=== PATIENT | male | born 1985 | race Caucasian/White ===

== ENCOUNTER 2019-02-08 11:44 | Emergency (ER) | payer BC ==
[2019-02-08] MEDS ORDERED: HYDROCODONE/APAP 5/325 MG TAB ONE (12:57)
[2019-02-08] MEDS ORDERED: DIAZEPAM 5 MG TABLET ONE (12:58)
[2019-02-08 13:02] LABS: Urine Bacteria <20 /HPF (NONE SEEN); Urine RBC <5 /HPF (NONE SEEN)
[2019-02-08 13:03] LABS: Urine Culture Reflex Order NOT NEEDED
[2019-02-08 13:42] LABS: Urine Blood NEGATIVE (NEG); Urine Glucose NEGATIVE (NEG); Urine Protein NEGATIVE (NEG); Urine pH 6.5 (5.0-7.0)
--- NOTE | 2019-02-08 14:04 | RAD REPORT ---
EXAM DESCRIPTION: RAD - Chest Pa And Lat (2 Views) - 02/08/2019 1:51 pm CLINICAL HISTORY: Cough, left mid back pain COMPARISON: None. TECHNIQUE: PA and lateral views of the chest were obtained. FINDINGS: The lungs are clear. Heart size is normal and central vasculature is within normal limit s. No pleural effusion or pneumothorax seen. No acute bony finding noted. No aortic abnormality. IMPRESSION: No acute cardiopulmonary process.
--- NOTE | 2019-02-08 14:41 | ER ---
Nurse's Notes [facility] Name: Ranjan Lino Age: 33 yrs Sex: Male : 1985 Arrival Date: 02/08/2019 Time: 11:49 Bed 26 Private MD: Diagnosis: Muscle spasm of back Presentation: 02/08 12:00 Presenting complaint: Patient states: left mid back pain that began 1 week ago. Pt aa5 denies urinary symptoms, denies known injury. Transition of care: patient was not received from another setting of care. Onset of symptoms was January 2019. Risk Assessment: Do you want to hurt yourself or someone else? Patient reports no desire to harm self or others. Initial Sepsis Screen: Does the patient meet any 2 criteria? No. Patient's initial sepsis screen is negative. Does the patient have a suspected source of infection? No. Patient's initial sepsis screen is negative. Care prior to arrival: None. 12:00 Method Of Arrival: Ambulatory aa5 12:00 Acuity: HOANG 3 aa5 Historical: - Allergies: 12:01 "unknown antinausea medication"; aa5 - PMHx: 12:01 Asthma; aa5 - PSHx: 12:01 None; aa5 - Immunization history:: Flu vaccine is not up to date. - Social history:: Smoking status: Patient uses tobacco products, denies chronic smoking, but will smoke occasionally. - Ebola Screening: : No symptoms or risks identified at this time. Screenin:55 Abuse screen: Denies threats or abuse. Denies injuries from another. Nutritional ch screening: No deficits noted. Tuberculosis screening: No symptoms or risk factors identified. Fall Risk None identified. Assessment: 12:51 Reassessment: Patient appears in no apparent distress at this time. Patient and/or ch family updated on plan of care and expected duration. Pain level reassessed. Patient is alert, oriented x 3, equal unlabored respirations, skin warm/dry/pink. 12:55 Reassessment: Patient appears in no apparent distress at this time. Patient and/or ch family updated on plan of care and expected duration. Pain level reassessed. Patient is alert, oriented x 3, equal unlabored respirations, skin warm/dry/pink. Patient states feeling better. Patient states symptoms have improved. Pain: Complains of pain in left subscapular area and left scapular area and left trapezius and left lateral posterior chest Pain currently is 4 out of 10 on a pain scale. Pain began suddenly. Neuro: Level of Consciousness is awake, alert, obeys commands, Oriented to person, place, time, situation. Cardiovascular: No deficits noted. Respiratory: Airway is patent Respiratory effort is even, unlabored, Respiratory pattern is regular. GI: No signs and/or symptoms were reported involving the gastrointestinal system. Derm: Skin is pink, warm \\T\\ dry. Musculoskeletal: Circulation, motion, and sensation intact. Capillary refill < 3 seconds, in bilateral fingers. toes. Vital Signs: 12:01 BP 128 / 85; Pulse 70; Resp 16 S; Temp 98.6(TE); Pulse Ox 97% on R/A; Weight 106.59 kg aa5 (R); Height 5 ft. 10 in. (177.80 cm) (R); Pain 10/10; 14:08 BP 130 / 80; Pulse 63; Resp 14; Temp 97.8; Pulse Ox 99% on R/A; Pain 7/10; ch 12:01 Body Mass Index 33.72 (106.59 kg, 177.80 cm) aa5 ED Course: 11:49 Patient arrived in ED. mr 11:53 [facility]C [facility] snw 11:53 Jayme James MD is Attending Physician. snw 12:00 Arm band placed on. aa5 12:01 Triage completed. aa5 12:22 Amy Roland, HAMMAD is Primary Nurse. ls4 12:35 Urine collected: clean catch specimen, clear, amrita colored, Amount Voided: 120mL. jp3 12:44 Urine Microscopic Only Sent. jp3 12:55 No apparent distress. Resting quietly. ch 12:55 Patient has correct armband on for positive identification. Bed in low position. Call ch light in reach. Side rails up X 1. Adult w/ patient. Warm blanket given. 12:55 No provider procedures requiring assistance completed. Patient did not have IV access ch during this emergency room visit. 13:43 Patient moved to radiology via wheelchair. jb2 13:47 X-ray completed. Patient tolerated procedure well. Patient moved back from radiology. mh1 13:49 Chest Pa And Lat (2 Views) XRAY In Process Unspecified. EDMS Administered Medications: 12:50 Drug: [place] 5 mg-325 mg 1 tabs Route: PO; 14:09 Follow up: Response: No adverse reaction; Pain is decreased 12:51 Drug: Valium 5 mg Route: PO; 14:09 Follow up: Response: No adverse reaction; Pain is decreased Outcome: 14:40 Discharge ordered by MD. crowe 15:00 Patient left the ED. Signatures: Dispatcher [employer] EDMS Karin Henderson, RN RN Wendy Brunson, PROCEDURES ANALYST-C PROCEDURES ANALYST-Csnw LebronKelsey mr Alvarez, Alan fatima2 Geovanna Gomez 1 Aletha Kauffman RN RN aa5 Angel Botello jp3 Amy Roland RN RN ls4
--- NOTE | 2019-02-08 14:41 | EDPHYS ---
Physician Documentation [facility] Name: Ranjan Lino Age: 33 yrs Sex: Male : 1985 Arrival Date: 02/08/2019 Time: 11:49 Bed 26 Private MD: BILLY Physician Jayme James HPI: 02/08 12:37 This 33 yrs old Male presents to ER via Ambulatory with complaints of Back snw Pain. 12:37 The patient presents with pain that is acute, with no known mechanism of injury. The snw symptoms are located in the left trapezius, left scapular area and left subscapular area. Onset: The symptoms/episode began/occurred suddenly, 1 week(s) ago, and became persistent. The pain does not radiate. Associated signs and symptoms: Pertinent positives: cough. The problem was sustained from unknown cause. Modifying factors: The patient symptoms are alleviated by nothing, the patient symptoms are aggravated by coughing. Severity of symptoms: At their worst the symptoms were moderate. It is unknown whether or not the patient has had similar symptoms in the past. It is unknown whether or not the patient has recently seen a physician. Historical: - Allergies: 12:01 "unknown antinausea medication"; aa5 - PMHx: 12:01 Asthma; aa5 - PSHx: 12:01 None; aa5 - Immunization history:: Flu vaccine is not up to date. - Social history:: Smoking status: Patient uses tobacco products, denies chronic smoking, but will smoke occasionally. - Ebola Screening: : No symptoms or risks identified at this time. ROS: 12:37 Constitutional: Negative for fever, chills, and weight loss, Eyes: Negative for injury, snw pain, redness, and discharge, ENT: Negative for injury, pain, and discharge, Neck: Negative for injury, pain, and swelling, Abdomen/GI: Negative for abdominal pain, nausea, vomiting, diarrhea, and constipation, Back: Negative for injury and pain, : Negative for injury, bleeding, discharge, and swelling, MS/Extremity: Negative for injury and deformity, Skin: Negative for injury, rash, and discoloration, Neuro: Negative for headache, weakness, numbness, tingling, and seizure. 12:37 Cardiovascular: Positive for upper left back pain. 12:37 Respiratory: Positive for cough, pleurisy, of the left lateral posterior chest. Exam: 12:37 Constitutional: This is a well developed, well nourished patient who is awake, alert, snw and in no acute distress. Head/Face: Normocephalic, atraumatic. Eyes: Pupils equal round and reactive to light, extra-ocular motions intact. Lids and lashes normal. Conjunctiva and sclera are non-icteric and not injected. Cornea within normal limits. Periorbital areas with no swelling, redness, or edema. ENT: Nares patent. No nasal discharge, no septal abnormalities noted. Tympanic membranes are normal and external auditory canals are clear. Oropharynx with no redness, swelling, or masses, exudates, or evidence of obstruction, uvula midline. Mucous membranes moist. Neck: Trachea midline, no thyromegaly or masses palpated, and no cervical lymphadenopathy. Supple, full range of motion without nuchal rigidity, or vertebral point tenderness. No Meningismus. Cardiovascular: Regular rate and rhythm with a normal S1 and S2. No gallops, murmurs, or rubs. Normal PMI, no JVD. No pulse deficits. Abdomen/GI: Soft, non-tender, with normal bowel sounds. No distension or tympany. No guarding or rebound. No evidence of tenderness throughout. Back: No spinal tenderness. No costovertebral tenderness. Full range of motion. Skin: Warm, dry with normal turgor. Normal color with no rashes, no lesions, and no evidence of cellulitis. MS/ Extremity: Pulses equal, no cyanosis. Neurovascular intact. Full, normal range of motion. Neuro: Awake and alert, GCS 15, oriented to person, place, time, and situation. Cranial nerves II-XII grossly intact. Motor strength 5/5 in all extremities. Sensory grossly intact. Cerebellar exam normal. Normal gait. Psych: Awake, alert, with orientation to person, place and time. Behavior, mood, and affect are within normal limits. 12:37 Chest/axilla: Inspection: normal, Palpation: tenderness, that is moderate, of the left lateral posterior chest. 12:37 Respiratory: the patient does not display signs of respiratory distress, Respirations: normal, Breath sounds: are clear throughout, cough. Vital Signs: 12:01 BP 128 / 85; Pulse 70; Resp 16 S; Temp 98.6(TE); Pulse Ox 97% on R/A; Weight 106.59 kg aa5 (R); Height 5 ft. 10 in. (177.80 cm) (R); Pain 10/10; 14:08 BP 130 / 80; Pulse 63; Resp 14; Temp 97.8; Pulse Ox 99% on R/A; Pain 7/10; ch 12:01 Body Mass Index 33.72 (106.59 kg, 177.80 cm) aa5 MDM: 12:24 Patient medically screened. snw 14:51 Data reviewed: vital signs, nurses notes. Data interpreted: Pulse oximetry: on room air snw is 99 %. Interpretation: normal. Counseling: I had a detailed discussion with the patient and/or guardian regarding: the historical points, exam findings, and any diagnostic results supporting the discharge/admit diagnosis, lab results, radiology results, the need for outpatient follow up, to return to the emergency department if symptoms worsen or persist or if there are any questions or concerns that arise at home. Special discussion: I have referred the patient to see his PCP for further evaluation of high blood pressure. Based on the history and exam findings, there is no indication for further emergent testing or inpatient evaluation. I discussed with the patient/guardian the need to see the primary care provider for further evaluation of the symptoms. 02/08 12:04 Order name: Urine Microscopic Only; Complete Time: 13:19 snw 02/08 13:30 Order name: Urine Dipstick--Ancillary (enter results); Complete Time: 13:43 bd 02/08 12:04 Order name: Urine Dipstick-Ancillary (obtain specimen); Complete Time: 12:44 snw 02/08 12:36 Order name: Chest Pa And Lat (2 Views) XRAY; Complete Time: 14:05 snw Administered Medications: 12:50 Drug: [place] 5 mg-325 mg 1 tabs Route: PO; ch 14:09 Follow up: Response: No adverse reaction; Pain is decreased ch 12:51 Drug: Valium 5 mg Route: PO; ch 14:09 Follow up: Response: No adverse reaction; Pain is decreased ch Disposition: 15:06 Co-signature as Attending Physician, Jayme James MD I agree with the assessment and pravin plan of care. Disposition: 02/08/19 14:40 Discharged to Home. Impression: Muscle spasm of back. - Condition is Stable. - Discharge Instructions: Hypertension, Muscle Cramps and Spasms, Back Exercises, [id number], Cryotherapy, Heat Therapy. - Prescriptions for Diclofenac Sodium 75 mg Oral Tablet Sustained Release - take 1 tablet by ORAL route 2 times per day; 30 tablet. orphenadrine citrate 100 mg Oral Tablet Sustained Release - take 1 tablet by ORAL route 2 times per day As needed; 20 tablet. - Work release form, Medication Reconciliation Form, Thank You Letter, Antibiotic Education, Prescription Opioid Use form. - Follow up: Private Physician; When: 2 - 3 days; Reason: Recheck today's complaints, Continuance of care, Re-evaluation by your physician. Follow up: Emergency Department; When: As needed; Reason: Worsening of condition. Signatures: Dispatcher [employer] Karin Mancuso, RN RN Jayme Deleon MD MD cha Therrien, Shelly, CLEANING AND WASHING EQUIPMENT OPERATOR-C CLEANING AND WASHING EQUIPMENT OPERATOR-Csnw Aletha Kauffman, RN RN aa5 Corrections: (The following items were deleted from the chart) 15:00 14:40 02/08/2019 14:40 Discharged to Home. Impression: Muscle spasm of back. Condition ch is Stable. Forms are Medication Reconciliation Form, Thank You Letter, Antibiotic Education, Prescription Opioid Use. Follow up: Private Physician; When: 2 - 3 days; Reason: Recheck today's complaints, Continuance of care, Re-evaluation by your physician. Follow up: Emergency Department; When: As needed; Reason: Worsening of condition. snw
== END 2019-02-08 15:00 | disposition home or self-care (01) ==
LOC: ER 11:44
DX: M62.830 Muscle spasm of back (principal)
CPT/HCPCS: 71046; 81003; 81015; 99283

== ENCOUNTER 2019-04-26 23:26 | Emergency (ER) | payer BC ==
[2019-04-27 00:06] LABS: Absolute Lymphocytes (CBC) 1.7 K/uL (0.7-4.9); Absolute Monocytes 2.1 K/uL (0.1-1.3); Absolute Neutrophil 0.7 K/uL (1.8-8.0); Basophils % 0.1 % (0-1.3); Hematocrit 37.6 % (39.6-49.0); Lymphocytes % 37.2 % (15.3-44.8); MPV 8.1 fL (7.6-11.3); Monocytes % 45.2 % (3.3-12.3); Protime INR 1.18
[2019-04-27 00:23] LABS: ALT/SGPT 25 U/L (12-78); AST/SGOT 16 U/L (15-37); Albumin 3.7 g/dL (3.4-5.0); Alkaline Phosphatase 49 U/L (45-117); BUN Blood Urea Nitrogen 15 mg/dL (7-18); Bicarbonate 25 mmol/L (21-32); Bilirubin Direct < 0.1 mg/dL (0-0.2); Bilirubin Total 0.3 mg/dL (0.2-1.0); Glucose Level 103 mg/dL (74-106); Magnesium 2.1 mg/dL (1.8-2.4); NT PRO-BNP 14 pg/mL (<125); Potassium 3.9 mmol/L (3.5-5.1); Protein, Total 7.6 g/dL (6.4-8.2); Sodium Level 141 mmol/L (136-145); Troponin (Emerg Dept Use Only) < 0.02 ng/mL (0.0-0.045)
[2019-04-27] MEDS ORDERED: IPRATROPIUM BROM 0.5MG/2.5ML ONE (00:41)
[2019-04-27] MEDS ORDERED: MORPHINE 4 MG/ML SYR ONE (00:41)
[2019-04-27] MEDS ORDERED: METHYLPREDNISOLONE 125 MG INJ ONE (00:41)
[2019-04-27] MEDS ORDERED: ONDANSETRON 4 MG/2 ML VIAL ONE (00:41)
[2019-04-27] MEDS ORDERED: ALBUTEROL 2.5 MG/3 ML NEB SOL ONE (00:41)
[2019-04-27 01:04] LABS: Blood Morphology Comment NOT SEEN (NOT SEEN); Platelet Estimate ADEQ
--- NOTE | 2019-04-27 01:28 | EDPHYS ---
Physician Documentation [facility] Name: Ranjan Lino Age: 33 yrs Sex: Male : 1985 Arrival Date: 04/26/2019 Time: 23:28 Bed 25 Private MD: ED Physician Jenifer Childers HPI: 04/27 01:24 This 33 yrs old Male presents to ER via Ambulatory with complaints of Chest ma2 Pain, Lung pain. 01:24 The patient or guardian reports chest pain that is located primarily in the anterior ma2 aspect of right upper chest. Associated signs and symptoms: Pertinent positives: sob and wheezes. The chest pain is described as sharp. Modifying factors: The symptoms are alleviated by nothing. the symptoms are aggravated by deep breath, palpation of area, twisting torso. Severity of pain: At its worst the pain was very mild in the emergency department the pain is unchanged. The patient has experienced similar episodes in the past. Historical: - Allergies: 04/26 23:35 "unknown antinausea medication"; ed1 - Home Meds: 23:35 albuterol sulfate 90 mcg/actuation Inhl HFAA [Active]; Advair Diskus Inhl [Active]; ed1 - PMHx: 23:35 Asthma; ed1 - PSHx: 23:35 None; ed1 - Immunization history:: Adult Immunizations up to date. - Social history:: Smoking status: Patient/guardian denies using tobacco, Patient/guardian denies using alcohol, street drugs, The patient lives with family. - Ebola Screening: : Patient negative for fever greater than or equal to 101.5 degrees Fahrenheit, and additional compatible Ebola Virus Disease symptoms Patient denies exposure to infectious person Patient denies travel to an Ebola-affected area in the 21 days before illness onset No symptoms or risks identified at this time. - Family history:: not pertinent. ROS: 04/27 01:24 Constitutional: Negative for fever, chills, and weight loss. ma2 Respiratory: Positive for wheezing, Negative for hemoptysis. All other systems are negative. Exam: 01:24 Constitutional: This is a well developed, well nourished patient who is awake, alert, ma2 and in no acute distress. Chest/axilla: Normal chest wall appearance and motion. Nontender with no deformity. No lesions are appreciated. Cardiovascular: Regular rate and rhythm with a normal S1 and S2. No gallops, murmurs, or rubs. Normal PMI, no JVD. No pulse deficits. Abdomen/GI: Soft, non-tender, with normal bowel sounds. No distension or tympany. No guarding or rebound. No evidence of tenderness throughout. MS/ Extremity: Pulses equal, no cyanosis. Neurovascular intact. Full, normal range of motion. Psych: Awake, alert, with orientation to person, place and time. Behavior, mood, and affect are within normal limits. 01:24 Respiratory: mild respiratory distress is noted, Respirations: normal, Breath sounds: rhonchi, wheezing: Vital Signs: 04/26 23:35 BP 133 / 67; Pulse 92; Resp 18; Temp 97.8(O); Pulse Ox 95% on R/A; Weight 88.45 kg; ed1 Height 5 ft. 10 in. (177.80 cm); Pain 08/26; 04/27 00:28 BP 123 / 82; Pulse 98; Resp 22 S; Pulse Ox 97% on R/A; ca1 04/26 23:35 Body Mass Index 27.98 (88.45 kg, 177.80 cm) ed1 MDM: 04/26 23:37 Patient medically screened. [facility] 04/27 01:24 Differential diagnosis: gastritis, gastroesophageal reflux disease (GERD), ma2 pneumothorax, asthma. Data reviewed: vital signs, nurses notes. Counseling: I had a detailed discussion with the patient and/or guardian regarding: the historical points, exam findings, and any diagnostic results supporting the discharge/admit diagnosis, the presence of at least one elevated blood pressure reading (>120/80) during this emergency department visit, the need for outpatient follow up. Response to treatment: the patient's symptoms have resolved after treatment. 04/26 23:38 Order name: Basic Metabolic Panel [facility] 04/26 23:38 Order name: CBC with Diff; Complete Time: 01:24 [facility] 04/26 23:38 Order name: LFT's [facility] 04/26 23:38 Order name: Magnesium; Complete Time: 00:47 [facility] 04/26 23:38 Order name: NT PRO-BNP; Complete Time: 00:47 [facility] 04/26 23:38 Order name: PT-INR; Complete Time: 00:15 oh2 04/26 23:38 Order name: Troponin (emerg Dept Use Only); Complete Time: 00:47 ma2 04/26 23:38 Order name: XRAY Chest (1 view) ma2 04/26 23:40 Order name: Basic Metabolic Panel; Complete Time: 00:47 EDMS 04/26 23:40 Order name: Liver (Hepatic) Function; Complete Time: 00:47 EDMS 04/27 01:03 Order name: Manual Differential; Complete Time: 01:24 EDMS 04/26 23:38 Order name: EKG; Complete Time: 23:41 ma2 04/26 23:38 Order name: Cardiac monitoring; Complete Time: 23:52 ma2 04/26 23:38 Order name: EKG - Nurse/Tech; Complete Time: 23:52 ma2 04/26 23:38 Order name: IV Saline Lock; Complete Time: 23:53 ma2 04/26 23:38 Order name: Labs collected and sent; Complete Time: 23:52 ma2 04/26 23:38 Order name: O2 Per Protocol; Complete Time: 23:52 ma2 04/26 23:38 Order name: O2 Sat Monitoring; Complete Time: 23:52 ma2 Administered Medications: 00:39 Drug: MethylPrednisoLONE 125 mg Route: IVP; Site: left antecubital; mg2 01:37 Follow up: Response: No adverse reaction; Marked relief of symptoms mg2 00:39 Drug: morphine 4 mg Route: IVP; Site: left antecubital; mg2 01:37 Follow up: Response: No adverse reaction; Marked relief of symptoms mg2 00:39 Drug: Zofran 4 mg Route: IVP; Site: left antecubital; mg2 01:37 Follow up: Response: No adverse reaction; Marked relief of symptoms mg2 00:40 Drug: Albuterol - atroVENT (3:1) (2.5 mg - 0.5 mg) 3 ml Route: Nebulizer; mg2 01:37 Follow up: Response: No adverse reaction; Marked relief of symptoms mg2 Disposition: 04/27/19 01:27 Discharged to Home. Impression: Asthma. - Condition is Stable. - Discharge Instructions: Asthma Attack Prevention, Adult. - Prescriptions for Tylenol- Codeine #3 300-30 mg Oral Tablet - take 2 tablet by ORAL route every 6 hours As needed; 30 tablet. Medrol (Celestine) 4 mg Oral Tablets, Dose Pack - take 1 tablet by ORAL route as directed - follow package instructions; 1 packet. Albuterol Sulfate 90 mcg/actuation - inhale 1-2 puff by INHALATION route every 4-6 hours; 1 Inhaler. - Medication Reconciliation Form, Thank You Letter, Antibiotic Education, Prescription Opioid Use, Work release form form. - Follow up: Private Physician; When: Tomorrow; Reason: Continuance of care. Signatures: Dispatcher [employer] Анна Pan RN RN ed1 Jenifer Childers MD MD ma2 Benito Dey RN RN mg2 Corrections: (The following items were deleted from the chart) 01:52 01:27 04/27/2019 01:27 Discharged to Home. Impression: Asthma. Condition is Stable. mg2 Forms are Medication Reconciliation Form, Thank You Letter, Antibiotic Education, Prescription Opioid Use. Follow up: Private Physician; When: Tomorrow; Reason: Continuance of care. ma2
--- NOTE | 2019-04-27 01:28 | ER ---
Nurse's Notes [facility] Name: Ranjan Lino Age: 33 yrs Sex: Male : 1985 Arrival Date: 04/26/2019 Time: 23:28 Bed 25 Private MD: Diagnosis: Asthma Presentation: 04/26 23:33 Presenting complaint: Patient states: I have chest pain that started about 2 hours ago, ed1 it hurts to breathe. Transition of care: patient was not received from another setting of care. Onset of symptoms was April 26, 2019. Risk Assessment: Do you want to hurt yourself or someone else? Patient reports no desire to harm self or others. Initial Sepsis Screen: Does the patient meet any 2 criteria? No. Patient's initial sepsis screen is negative. Does the patient have a suspected source of infection? No. Patient's initial sepsis screen is negative. Care prior to arrival: None. 23:33 Method Of Arrival: Ambulatory ed1 23:33 Acuity: HOANG 3 ed1 Triage Assessment: 23:35 General: Appears uncomfortable, Behavior is calm, cooperative. Pain: Complains of pain ed1 in chest Pain currently is 10 out of 10 on a pain scale. Cardiovascular: Reports chest pain, Denies nausea. Historical: - Allergies: 23:35 "unknown antinausea medication"; ed1 - Home Meds: 23:35 albuterol sulfate 90 mcg/actuation Inhl HFAA [Active]; Advair Diskus Inhl [Active]; ed1 - PMHx: 23:35 Asthma; ed1 - PSHx: 23:35 None; ed1 - Immunization history:: Adult Immunizations up to date. - Social history:: Smoking status: Patient/guardian denies using tobacco, Patient/guardian denies using alcohol, street drugs, The patient lives with family. - Ebola Screening: : Patient negative for fever greater than or equal to 101.5 degrees Fahrenheit, and additional compatible Ebola Virus Disease symptoms Patient denies exposure to infectious person Patient denies travel to an Ebola-affected area in the 21 days before illness onset No symptoms or risks identified at this time. - Family history:: not pertinent. Screenin/11 01:49 Abuse screen: Denies threats or abuse. Denies injuries from another. Nutritional mg2 screening: No deficits noted. Tuberculosis screening: No symptoms or risk factors identified. Fall Risk IV access (20 points). Assessment: 01:00 Pain: Complains of pain in chest and anterior aspect of right upper chest. Pain: Pain mg2 does not radiate. Pain began gradually, 1 day ago. Neuro: Level of Consciousness is awake, alert, obeys commands, Oriented to person, place, time, situation. Cardiovascular: Reports chest pain, shortness of breath. Respiratory: Airway is patent Respiratory effort is even, unlabored, Respiratory pattern is regular, symmetrical, Breath sounds are clear bilaterally. in right upper lobe, left upper lobe, right middle lobe, left lower lobe, right lower lobe, left posterior upper lobe and right posterior upper lobe. GI: No signs and/or symptoms were reported involving the gastrointestinal system. : No signs and/or symptoms were reported regarding the genitourinary system. EENT: No deficits noted. 01:00 Derm: Skin is intact, is healthy with good turgor, Skin is pink, warm \\T\\ dry. normal. mg2 01:49 Reassessment: Patient appears in no apparent distress at this time. Patient and/or mg2 family updated on plan of care and expected duration. Pain level reassessed. Patient is alert, oriented x 3, equal unlabored respirations, skin warm/dry/pink. Vital Signs: 04/26 23:35 BP 133 / 67; Pulse 92; Resp 18; Temp 97.8(O); Pulse Ox 95% on R/A; Weight 88.45 kg; ed1 Height 5 ft. 10 in. (177.80 cm); Pain 08/26; 04/27 00:28 BP 123 / 82; Pulse 98; Resp 22 S; Pulse Ox 97% on R/A; ca1 04/26 23:35 Body Mass Index 27.98 (88.45 kg, 177.80 cm) ed1 ED Course: 04/26 23:28 Patient arrived in ED. es 23:34 Triage completed. ed1 23:35 Arm band placed on left wrist. ed1 23:37 Jenifer Childers MD is Attending Physician. ma2 23:43 Benito Dey, HAMMAD is Primary Nurse. mg2 23:48 No provider procedures requiring assistance completed. Inserted saline lock: 18 gauge ca1 in left antecubital area, using aseptic technique. Blood collected. Patient maintains SpO2 saturation greater than 95% on room air. 23:52 Basic Metabolic Panel Sent. ca1 04/27 00:02 X-ray completed. Portable x-ray completed in exam room. Patient tolerated procedure kw well. 00:09 XRAY Chest (1 view) In Process Unspecified. EDMS 01:00 Patient has correct armband on for positive identification. mg2 01:51 cardiac monitor technician on. Pulse ox on. NIBP on. mg2 01:51 IV discontinued, intact, bleeding controlled, No redness/swelling at site. Pressure mg2 dressing applied. Administered Medications: 00:39 Drug: MethylPrednisoLONE 125 mg Route: IVP; Site: left antecubital; mg2 01:37 Follow up: Response: No adverse reaction; Marked relief of symptoms mg2 00:39 Drug: morphine 4 mg Route: IVP; Site: left antecubital; mg2 01:37 Follow up: Response: No adverse reaction; Marked relief of symptoms mg2 00:39 Drug: Zofran 4 mg Route: IVP; Site: left antecubital; mg2 01:37 Follow up: Response: No adverse reaction; Marked relief of symptoms mg2 00:40 Drug: Albuterol - atroVENT (3:1) (2.5 mg - 0.5 mg) 3 ml Route: Nebulizer; mg2 01:37 Follow up: Response: No adverse reaction; Marked relief of symptoms mg2 Outcome: 01:27 Discharge ordered by MD. roldan 01:51 Discharged to home ambulatory, with family. mg2 01:51 Condition: stable 01:51 Discharge instructions given to patient, family, Instructed on discharge instructions, follow up and referral plans. medication usage, Demonstrated understanding of instructions, follow-up care, medications, Prescriptions given X 3. 01:52 Patient left the ED. 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 Pt did not answer phone call. Left VM. Will give reports to gun club manager for further follow up with patient. 15:55 Addendum: Other Spoke with Dr. Jones who states that we do not take care of AML in our s s area and patient will need a referral to MD [facility]. Dr. Galeano has spoken with patient. Pt referral initiated with [facility], . Pt is aware. Signatures: Dispatcher [employer] Keri Castillo Shelby, RN RN ss Анна Sellers RN RN ed1 Phyllis Jerry Mohammad, MD MD ky2 Benito Dey RN RN mg2 Ana Pedroza 3 Coni Rosas RN RN ca1 Corrections: (The following items were deleted from the chart) 15:54 15:51 Addendum: Other Spoke with Dr. Jones who states that we do not take care of AML in [facility] our area and patient will need a referral to [facility]. Dr. Galeano has spoken with patient. Pt referral initiated with [facility], . Pt is aware [facility]
--- NOTE | 2019-04-27 08:10 | RAD REPORT ---
EXAM DESCRIPTION: Alli Single View04/27/2019 12:06 am CLINICAL HISTORY: Chest pain COMPARISON: January 2019 FINDINGS: The lungs appear clear of acute infiltrate. The heart is normal size IMPRESSION: No acute abnormalities displayed
--- NOTE | 2019-04-27 12:04 | EKG ---
Test Date: 2019-04-26 Test Time: 23:50:57 [place]everman: MG MEASUREMENT RESULTS: Intervals: Rate: 86 SD: 154 QRSD: 94 QT: 324 QTc: 387 [place]: P: 36 SD: 154 QRS: 28 T: 46 INTERPRETIVE STATEMENTS: Normal sinus rhythm Incomplete right bundle branch block Borderline ECG No previous ECG available for comparison Electronically Signed On 04-27-19 12:02:27 CDT by Reji Mccall
== END 2019-04-27 01:52 | disposition home or self-care (01) ==
LOC: ER 23:26
DX: J45.909 Unspecified asthma, uncomplicated (principal)
CPT/HCPCS: 36415; 71045; 80048; 80076; 83735; 83880; 84484; 85025; 85610; 93005; 94640; 96374; 96375; 99285; J2405; J2930

== ENCOUNTER 2019-05-21 15:44 | Emergency (ER) | payer BC ==
[2019-05-21 16:51] LABS: Protime INR 1.28
[2019-05-21] MEDS ORDERED: NA CHLORIDE 0.9% 1,000 ML ONE (16:52)
--- NOTE | 2019-05-21 17:03 | RAD REPORT ---
EXAM DESCRIPTION: RAD - Chest Single View - 05/21/2019 4:51 pm CLINICAL HISTORY: Fever, neck and right flank pain COMPARISON: April 27 TECHNIQUE: AP portable chest image was obtained 1645 hours . FINDINGS: Lung volumes are low. Lung nelson are clear. No failure or volume overload. Right upper ex tremity PICC line is in place with the tip in the mid SVC. Heart and vasculature are normal. No measu rable pleural effusion and no pneumothorax. No acute bony abnormality seen. No acute aortic findings suspected. IMPRESSION: No acute cardiopulmonary process. No significant change from comparison.
[2019-05-21 17:06] LABS: ALT/SGPT 22 U/L (12-78); AST/SGOT 17 U/L (15-37); Alkaline Phosphatase 51 U/L (45-117); BUN Blood Urea Nitrogen 16 mg/dL (7-18); Bicarbonate 26 mmol/L (21-32); Bilirubin Direct 0.4 mg/dL (0-0.2); Bilirubin Total 1.3 mg/dL (0.2-1.0); Glucose Level 88 mg/dL (74-106); Lipase 66 U/L (73-393); Potassium 3.9 mmol/L (3.5-5.1); Protein, Total 6.9 g/dL (6.4-8.2); Sodium Level 134 mmol/L (136-145); Troponin (Emerg Dept Use Only) < 0.02 ng/mL (0.0-0.045)
[2019-05-21] MEDS ORDERED: PIPER/TAZO/NS 3.375gm 3.375 GM/100 ML BAG ONE (17:08)
[2019-05-21 17:19] LABS: Hematocrit 23.5 % (39.6-49.0); MPV 9.2 fL (7.6-11.3); RBC Red Blood Cell Count 2.81 M/uL (4.33-5.43)
--- NOTE | 2019-05-21 17:41 | RAD REPORT ---
EXAM DESCRIPTION: CT - Abdomen Pelvis W Contrast - 05/21/2019 5:33 pm CLINICAL HISTORY: Abdominal pain, constipation COMPARISON: None. TECHNIQUE: Biphasic, helical CT imaging of the abdomen and pelvis was performed following 100 ml non -ionic IV contrast. No oral contrast administered. All CT scans are performed using dose optimization technique as appropriate and may include automated exposure control or mA/KV adjustment according to patient size. FINDINGS: No suspicious findings in the lung bases. The liver, spleen, and pancreas show no suspicious findings. Gallbladder and biliary tree are also wi thout suspicious finding. Symmetric renal function is seen with no hydronephrosis or suspicious renal mass. No pyelonephritis o r acute parenchymal process. No bladder abnormalities. No adrenal abnormalities. No gastric dilatation or gastric wall thickening. No dilated small bowel loops. A few small bowel loo ps show mild prominence of the covarrubias. This is probably peristalsis artifact. Minimal enteritis is a l homer consideration. Patient has moderate stool volume filling but not dilating the entirety of the c olon. Appendix is normal. No colon wall mass or focal wall thickening seen. No free air, free fluid or inflammatory stranding. No hernia, mass or bulky lymphadenopathy. No suspicious bony findings. IMPRESSION: Moderate stool volume is present filling but not dilating the colon. No colon mass or fo angie colon wall thickening. A few loops of small bowel show minimal prominence of wall thickness. This is probably peristalsis ar tifact rather than minimal enteritis.
[2019-05-21] MEDS ORDERED: VANCOMYCIN 1.5 GM in NA CHLORIDE 0.9% 500 ML IVPB SCH (18:00)
--- NOTE | 2019-05-21 18:33 | ER ---
Nurse's Notes [facility] Name: Ranjan Lino Age: 33 yrs Sex: Male : 1985 Arrival Date: 05/21/2019 Time: 15:46 Bed 23 Private MD: Diagnosis: Neutropenia;Fever, unspecified;Thrombocytopenia, unspecified Presentation: 05/21 15:49 Presenting complaint: Nausea and constipation x 6 days, headache, pain in neck and hb right flank, and fever today. TMAX 101. Pt is being treated for leukemia MD James, had chemo approx 2 weeks ago, received 2 units PRBCs and one bag platelets yesterday. Transition of care: patient was not received from another setting of care. Onset of symptoms is unknown. Risk Assessment: Do you want to hurt yourself or someone else? Patient reports no desire to harm self or others. Care prior to arrival: None. 15:49 Method Of Arrival: Ambulatory hb 15:49 Acuity: HOANG 3 hb 16:20 Initial Sepsis Screen: Does the patient meet any 2 criteria?. ca1 16:20 Initial Sepsis Screen: Does the patient meet any 2 criteria? No. Patient's initial ca1 sepsis screen is negative. Does the patient have a suspected source of infection? No. Patient's initial sepsis screen is negative. Historical: - Allergies: 15:52 "unknown antinausea medication"; hb - Home Meds: 15:52 Advair Diskus Inhl [Active]; albuterol sulfate 90 mcg/actuation Inhl HFAA [Active]; hb - PMHx: 15:52 Asthma; Leukemia; hb - PSHx: 15:52 None; hb - Immunization history:: Adult Immunizations up to date. - Social history:: Smoking status: Patient/guardian denies using tobacco. - Ebola Screening: : No symptoms or risks identified at this time. Screenin:18 Abuse screen: Denies threats or abuse. Denies injuries from another. Nutritional ca1 screening: No deficits noted. Tuberculosis screening: No symptoms or risk factors identified. Fall Risk IV access (20 points). Assessment: 16:16 General: Appears in no apparent distress. comfortable, Behavior is calm, cooperative, ca1 appropriate for age, Reports fever for 1-2 days. Pain: Complains of pain in face and scalp Pain currently is 6 out of 10 on a pain scale. Neuro: Level of Consciousness is awake, alert, obeys commands, Oriented to person, place, time, situation. Cardiovascular: Heart tones S1 S2 present Capillary refill < 3 seconds Patient's skin is warm and dry. Respiratory: Airway is patent Respiratory effort is even, unlabored, Respiratory pattern is regular, symmetrical, Breath sounds are clear bilaterally. GI: Abdomen is flat, non-distended, Bowel sounds present X 4 quads. Abd is soft and non tender X 4 quads. : No deficits noted. No signs and/or symptoms were reported regarding the genitourinary system. EENT: No deficits noted. No signs and/or symptoms were reported regarding the EENT system. Derm: Skin is intact, Skin is pink, warm \\T\\ dry. Musculoskeletal: Circulation, motion, and sensation intact. Capillary refill < 3 seconds, Range of motion: intact in all extremities. 17:05 Reassessment: Patient appears in no apparent distress at this time. No changes from ca1 previously documented assessment. Patient and/or family updated on plan of care and expected duration. Pain level reassessed. Labs drawn from PICC line. Pt refused 2nd set of cultures to be drawn not at the PICC line. Discussed the importance of a second set of culture and the need to draw from another line. Verbalized understanding but still refused, stating they were instructed to refuse IV insertions and blood draws other than the PICC line. Notified provider. 17:49 Reassessment: Patient appears in no apparent distress at this time. Patient and/or ca1 family updated on plan of care and expected duration. Pain level reassessed. Patient is alert, oriented x 3, equal unlabored respirations, skin warm/dry/pink. 18:30 Reassessment: Patient appears in no apparent distress at this time. Patient and/or ca1 family updated on plan of care and expected duration. Pain level reassessed. Patient is alert, oriented x 3, equal unlabored respirations, skin warm/dry/pink. 19:32 Reassessment: Patient appears in no apparent distress at this time. Patient and/or ca1 family updated on plan of care and expected duration. Pain level reassessed. Patient is alert, oriented x 3, equal unlabored respirations, skin warm/dry/pink. Pt Temp at 100.1. Notified provider. Pt refused Tylenol. 20:36 Reassessment: Patient appears in no apparent distress at this time. Patient and/or ca1 family updated on plan of care and expected duration. Pain level reassessed. Patient is alert, oriented x 3, equal unlabored respirations, skin warm/dry/pink. Awaiting bed at [facility]. 21:39 Reassessment: Patient appears in no apparent distress at this time. Patient and/or ca1 family updated on plan of care and expected duration. Pain level reassessed. Patient is alert, oriented x 3, equal unlabored respirations, skin warm/dry/pink. Platelet transfusion initiated. See blood transfusion flow sheet. 22:30 Reassessment: Patient appears in no apparent distress at this time. Eyes closed. Easily ca1 awaken to verbal Stimuli. Significant other still at bedside. No c/o of pain, N/V, at this time. Equal and unlabored breathing. Skin pink, warm and dry. 23:21 Reassessment: Patient appears in no apparent distress at this time. Pt's eyes closed. ca1 Resting. Equal and unlabored breathing. Skin pink, warm and dry. 23:35 Reassessment: No changes from previously documented assessment. Completed Platelet ca1 Transfusion. 05/22 00:29 Reassessment: Patient appears in no apparent distress at this time. No changes from ca1 previously documented assessment. Pt eyes closed. Easily awaken to verbal stimuli. Equal and unlabored breathing. Skin pink, warm and dry. Awaiting bed at [facility]. 02:24 Reassessment: Patient appears in no apparent distress at this time. Patient and/or rv family updated on plan of care and expected duration. Pain level reassessed. Patient is alert, oriented x 3, equal unlabored respirations, skin warm/dry/pink. called report to [facility]. awaiting transport. Vital Signs: 05/21 15:49 BP 146 / 79; Pulse 101; Resp 18; Temp 99; Pulse Ox 99% on R/A; Weight 79.83 kg; Height hb 5 ft. 8 in. (172.72 cm); Pain 10/10; 17:09 BP 139 / 75; Pulse 88; Resp 16 S; Pulse Ox 99% on R/A; ca1 18:30 BP 125 / 70; Pulse 86; Resp 18 S; Pulse Ox 99% on R/A; ca1 19:33 BP 115 / 58; Pulse 94; Resp 17 S; Temp 100.1(A); Pulse Ox 99% on R/A; ca1 20:01 Temp 99.8(A); ca1 20:36 BP 105 / 58; Pulse 96; Resp 19 S; Temp 99.5(A); Pulse Ox 98% on R/A; ca1 21:24 BP 100 / 52; Pulse 80; Resp 16 S; Temp 98.8(A); Pulse Ox 98% on R/A; ca1 21:43 Temp 98.5(A); ca1 22:41 BP 115 / 65; Pulse 69; Resp 16 S; Temp 98.6(A); Pulse Ox 97% on R/A; ca1 23:19 BP 120 / 66; Pulse 69; Resp 16 S; Temp 98.5(A); Pulse Ox 99% on R/A; ca1 05/22 00:30 BP 114 / 65; Pulse 73; Resp 19 S; Pulse Ox 98% on R/A; ca1 00:58 BP 116 / 60; Pulse 69; Resp 16; Temp 98.6(O); Pulse Ox 98% on R/A; rv 02:00 BP 109 / 61; Pulse 66; Resp 16; Temp 98.6; Pulse Ox 99% ; rv 02:41 BP 117 / 54; Pulse 66; Resp 16; Temp 98.9; Pulse Ox 100% ; rv 05/21 15:49 Body Mass Index 26.76 (79.83 kg, 172.72 cm) hb ED Course: 05/21 15:46 Patient arrived in ED. mr 15:51 Jayme Mauricio PA is PHCP. cp 15:52 Jayme James MD is Attending Physician. cp 15:52 Triage completed. hb 15:53 Arm band placed on. hb 16:16 Coni Rosas, RN is Primary Nurse. ca1 16:18 Patient has correct armband on for positive identification. Bed in low position. Call ca1 light in reach. Side rails up X 1. Pulse ox on. NIBP on. Warm blanket given. Pillow given. 16:18 No provider procedures requiring assistance completed. ca1 16:20 Accessed PICC line. using per hospital protocol. Clean \\T\\ dry. Dressing intact. Good ca1 blood return. Flushes easily. 16:20 Initial lab(s) drawn, by me, sent to lab. First set of blood cultures drawn by me. ca1 16:53 Chest Single View XRAY In Process Unspecified. EDMS 17:32 CT completed. Patient tolerated procedure well. Patient moved to CT via wheelchair. nj Patient moved back from CT. 17:33 CT Abd/Pelvis - IV Contrast Only In Process Unspecified. EDMS 17:49 Lab(s) recollected, by me, sent to lab. ca1 07 00:31 Patient transferred, IV remains in place. ca1 00:35 Report given to Sigifredo Patel RN. ca1 Administered Medications: 05/21 16:30 Drug: NS 0.9% 1000 ml Route: IV; Rate: 1 bolus; Site: PICC; ca1 17:30 Follow up: Response: No adverse reaction; IV Status: Completed infusion ca1 17:05 Drug: Zosyn 3.375 grams Route: IVPB; Infused Over: 60 mins; Site: PICC; ca1 19:24 Follow up: Response: No adverse reaction; IV Status: Completed infusion ca1 18:43 Drug: fentaNYL (PF) 25 mcg Route: IVP; Site: PICC; ca1 19:25 Follow up: Response: No adverse reaction; Pain is unchanged, physician notified ca1 19:24 Drug: vancoMYCIN 1 grams Route: IVPB; Infused Over: 2 hrs; Site: PICC; ca1 05/22 00:29 Follow up: Response: No adverse reaction; IV Status: Completed infusion ca1 05/21 19:25 Drug: fentaNYL (PF) 25 mcg Route: IVP; Site: PICC; ca1 20:24 Follow up: Response: No adverse reaction; Pain is decreased ca1 19:32 Not Given (Patient Refused): Tylenol 1000 mg PO once ca1 20:01 Drug: Tylenol 1000 mg Route: PO; ca1 21:43 Follow up: Temp 98.5 Axillary; Response: No adverse reaction; Temperature is decreased ca1 Medication: 21:38 Blood products: Platelets X 1 unit given. See transfusion record. ca1 Point of Care Testing: Blood Glucose: 16:49 Blood Glucose: 103 mg/dL; ca1 Ranges: Output: 18:00 Urine: 260ml (Voided); Total: 260ml. ca1 22:24 Urine: 900ml (Voided); Total: 1160ml. ca1 Outcome: 18:32 ER care complete, transfer ordered by marta 05/22 02:41 Transferred by ground [facility] [place] [facility] [facility]. rv X-rays sent w/ patient. Condition: stable Instructed on the need for transfer. 02:44 Patient left the ED. rv Signatures: Dispatcher [employer] Kelsey Pappas, Jayme, Malika Sawant cp, RN RN Juwan Khan Ronaldo, RN RN rv Coni Rosas RN RN ca1 Corrections: (The following items were deleted from the chart) 05/21 15:53 15:49 Presenting complaint: Nausea and constipation x 6 days, headache and fever today. hb TMAX 101. Pt is being treated for leukemia MD James, had chemo approx 2 weeks ago, received 2 units PRBCs and one bag platelets yesterday. hb 20:57 17:05 Reassessment: Patient appears in no apparent distress at this time. No changes ca1 from previously documented assessment. Patient and/or family updated on plan of care and expected duration. Pain level reassessed. Labs drawn from PICC line. Pt refused 2nd set of cultures to be drawn not at the PICC line. Notified provider ca1 20:57 19:32 Reassessment: Patient appears in no apparent distress at this time. Patient is ca1 alert, oriented x 3, equal unlabored respirations, skin warm/dry/pink. Pt Temp at 100.1. Notified provider. Pt refused Tylenol ca1 20:57 18:30 Reassessment: Patient appears in no apparent distress at this time. Patient is ca1 alert, oriented x 3, equal unlabored respirations, skin warm/dry/pink. ca1 22:08 19:32 Reassessment: Patient appears in no apparent distress at this time. Patient ca1 and/or family updated on plan of care and expected duration. Pain level reassessed. Patient is alert, oriented x 3, equal unlabored respirations, skin warm/dry/pink. Pt Temp at 100.1. Notified provider. Pt refused Tylenol ca1 22:09 20:36 Reassessment: Patient appears in no apparent distress at this time. Patient is ca1 alert, oriented x 3, equal unlabored respirations, skin warm/dry/pink. ca1 23:20 22:30 Reassessment: Patient appears in no apparent distress at this time. Patient is ca1 alert, oriented x 3, equal unlabored respirations, skin warm/dry/pink. ca1 23:20 22:30 Reassessment: Patient appears in no apparent distress at this time. Patient is ca1 alert, oriented x 3, equal unlabored respirations, skin warm/dry/pink. Eyes closed. Easily awaken to verbal Stimuli. Significant other still at bedside. No c/o of pain, N/V, at this time. ca1 23: 22:41 BP 115 / 65; Pulse 69bpm; Resp 16bpm; Pulse Ox 97% RA; rv ca1 05/22 00:30 07/05 23:19 BP 120 / 66; Pulse 69bpm; Resp 16bpm; Pulse Ox 99% RA; Temp 98.5F Axillary; ca1 ca1
--- NOTE | 2019-05-21 18:34 | EDPHYS ---
Physician Documentation [facility] Name: Ranjan Lino Age: 33 yrs Sex: Male : 1985 Arrival Date: 05/21/2019 Time: 15:46 Bed 23 Private MD: Jayme Donohue HPI: 05/21 16:15 This 33 yrs old Male presents to ER via Ambulatory with complaints of Fever, cp Constipation. 16:15 The patient reports fever, that was measured at 101.4 degrees Fahrenheit. Onset: The cp symptoms/episode began/occurred this morning. Associated signs and symptoms: Pertinent positives: abdominal pain, constipation. 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 Patient reports receiving 2 units of PRBCs and platelets yesterday. Patient's oncologist is at [facility]. Historical: - Allergies: 15:52 "unknown antinausea medication"; hb - Home Meds: 15:52 Advair Diskus Inhl [Active]; albuterol sulfate 90 mcg/actuation Inhl HFAA [Active]; hb - PMHx: 15:52 Asthma; Leukemia; hb - PSHx: 15:52 None; hb - Immunization history:: Adult Immunizations up to date. - Social history:: Smoking status: Patient/guardian denies using tobacco. - Ebola Screening: : No symptoms or risks identified at this time. ROS: 16:20 Constitutional: Positive for low grade temp, Negative for body aches, chills, poor PO cp intake. 16:20 Eyes: Negative for injury, pain, redness, and discharge. cp 16:20 ENT: Negative for drainage from ear(s), ear pain, sinus pain, sore throat, difficulty swallowing, difficulty handling secretions. 16:20 Neck: Negative for pain with movement, pain at rest, stiffness, tenderness. 16:20 Cardiovascular: Negative for chest pain, edema, palpitations. 16:20 Respiratory: Negative for cough, shortness of breath, wheezing. 16:20 Abdomen/GI: Positive for abdominal pain, constipation, Negative for vomiting, diarrhea, black/tarry stool, rectal bleeding. 16:20 Skin: Negative for cellulitis, rash. 16:20 Neuro: Positive for headache, Negative for altered mental status, weakness. 16:20 All other systems are negative. Exam: 16:30 Constitutional: The patient appears in no acute distress, alert, awake, cp non-diaphoretic, non-toxic, well developed, well nourished. 16:30 Head/Face: Normocephalic, atraumatic. cp 16:30 Eyes: Periorbital structures: appear normal, Conjunctiva: normal, no exudate, no injection, Sclera: no appreciated abnormality, Lids and lashes: appear normal, bilaterally. 16:30 ENT: External ear(s): are unremarkable, TM's: dullness, bilaterally, Nose: is normal. 16:30 Neck: ROM/movement: is normal, is supple, no range of motions limitations, no meningismus, no nuchal rigidity. 16:30 Chest/axilla: Inspection: normal, Palpation: is normal, no crepitus, no tenderness. 16:30 Cardiovascular: Rate: tachycardic, Rhythm: regular, Heart sounds: murmur, not appreciated, Edema: is not appreciated, JVD: is not appreciated. 16:30 Respiratory: the patient does not display signs of respiratory distress, Respirations: normal, no use of accessory muscles, no retractions, no splinting, no tachypnea, labored breathing, is not present, Breath sounds: are clear throughout, no decreased breath sounds, no stridor, no wheezing. 16:30 Abdomen/GI: Inspection: abdomen appears normal, Bowel sounds: active, all quadrants, Palpation: abdomen is soft and non-tender, in all quadrants, rebound tenderness, is not appreciated, voluntary guarding, is not appreciated, involuntary guarding, is not appreciated. 16:30 Back: pain, is absent, ROM is normal. 16:30 Skin: cellulitis, is not appreciated, no rash present. 16:30 Neuro: Orientation: to person, place \\T\\ time. Mentation: is normal, Motor: moves all fours, strength is normal. 16:37 ECG was reviewed by the Attending Physician. cp Vital Signs: 15:49 BP 146 / 79; Pulse 101; Resp 18; Temp 99; Pulse Ox 99% on R/A; Weight 79.83 kg; Height hb 5 ft. 8 in. (172.72 cm); Pain 10/10; 17:09 BP 139 / 75; Pulse 88; Resp 16 S; Pulse Ox 99% on R/A; ca1 18:30 BP 125 / 70; Pulse 86; Resp 18 S; Pulse Ox 99% on R/A; ca1 19:33 BP 115 / 58; Pulse 94; Resp 17 S; Temp 100.1(A); Pulse Ox 99% on R/A; ca1 20:01 Temp 99.8(A); ca1 20:36 BP 105 / 58; Pulse 96; Resp 19 S; Temp 99.5(A); Pulse Ox 98% on R/A; ca1 21:24 BP 100 / 52; Pulse 80; Resp 16 S; Temp 98.8(A); Pulse Ox 98% on R/A; ca1 21:43 Temp 98.5(A); ca1 22:41 BP 115 / 65; Pulse 69; Resp 16 S; Temp 98.6(A); Pulse Ox 97% on R/A; ca1 23:19 BP 120 / 66; Pulse 69; Resp 16 S; Temp 98.5(A); Pulse Ox 99% on R/A; ca1 05/22 00:30 BP 114 / 65; Pulse 73; Resp 19 S; Pulse Ox 98% on R/A; ca1 00:58 BP 116 / 60; Pulse 69; Resp 16; Temp 98.6(O); Pulse Ox 98% on R/A; rv 02:00 BP 109 / 61; Pulse 66; Resp 16; Temp 98.6; Pulse Ox 99% ; rv 02:41 BP 117 / 54; Pulse 66; Resp 16; Temp 98.9; Pulse Ox 100% ; rv 05/21 15:49 Body Mass Index 26.76 (79.83 kg, 172.72 cm) hb MDM: 05/21 15:54 Patient medically screened. pravin 17:00 Differential diagnosis: bacterial infection, pneumonia UTI, gastroenteritis, sepsis. cp 18:40 Physician consultation: DR Ana Lawrence will accept patient as transfer to [facility] but no current beds are available. Transfer center request call back at 0100 to check availability. 19:30 Data reviewed: vital signs, nurses notes, lab test result(s), EKG, radiologic studies, cp CT scan, plain films. 19:30 Test interpretation: by ED physician or midlevel provider: ECG, plain radiologic cp studies. 05/22 01:00 Physician consultation: regarding regarding transfer, [facility] unable to accept cp patient as transfer due to facility not having beds available, would like for us to contact later this morning to check facility for availability . 01:35 Physician consultation: DR Bell, hospitalist \\[facility] in the [facility], will cp accept patient as transfer. 05/21 16:13 Order name: Urine Culture cp 05/21 16:13 Order name: Basic Metabolic Panel; Complete Time: 17:07 cp 05/21 17:26 Interpretation: Normal except: NA 134; CA 8.0. cp 05/21 16:13 Order name: Blood Culture Adult (2) cp 05/21 16:13 Order name: CBC with Diff; Complete Time: 01:09 cp 05/21 16:13 Order name: Lactate; Complete Time: 17:02 cp 05/21 17:02 Interpretation: Reviewed. cp 05/21 16:13 Order name: LFT's; Complete Time: 17:07 cp 05/21 17:25 Interpretation: Normal except: BILIT 1.3; BILID 0.4; ALB 3.0; GLOB 3.9; A/G 0.8. cp 05/21 16:13 Order name: Lipase; Complete Time: 17:07 cp 05/21 16:13 Order name: Procalcitonin; Complete Time: 17:25 cp 05/21 16:13 Order name: Protime (+inr); Complete Time: 17:25 cp 05/21 16:13 Order name: Ptt, Activated; Complete Time: 17:25 cp 05/21 16:13 Order name: Troponin (emerg Dept Use Only); Complete Time: 17:07 cp 05/21 16:13 Order name: Urine Microscopic Only; Complete Time: 19:27 cp 05/21 19:27 Interpretation: Normal except: URBC 10-20. cp 05/21 16:47 Order name: Glucose, Ancillary Testing; Complete Time: 17:02 EDMS 05/21 16:52 Order name: Glucose, Ancillary Testing EDUT 05/21 16:13 Order name: Chest Single View XRAY; Complete Time: 17:07 cp 05/21 16:13 Order name: Accucheck; Complete Time: 16:48 cp 05/21 16:13 Order name: Cardiac monitoring; Complete Time: 16:48 cp 05/21 16:42 Order name: CT Abd/Pelvis - IV Contrast Only; Complete Time: 17:44 cp 05/21 17:43 Order name: Type And Screen cp 05/21 19:12 Order name: Urine Dipstick--Ancillary (enter results); Complete Time: 01:09 cm6 05/21 19:59 Order name: ABO/RH no charge; Complete Time: 01:09 EDMS 05/21 20:07 Order name: Platelets, Leukored Pheresis EDMS 05/21 20:37 Order name: Manual Differential; Complete Time: 01:09 EDMS 05/21 16:13 Order name: EKG - Nurse/Tech; Complete Time: 16:40 cp 05/21 16:13 Order name: IV Saline Lock - Large Bore; Complete Time: 16:40 cp 05/21 16:13 Order name: Labs collected and sent; Complete Time: 16:40 cp 05/21 16:13 Order name: O2 Per Protocol; Complete Time: 16:40 cp 05/21 16:13 Order name: O2 Sat Monitoring; Complete Time: 16:40 cp 05/21 16:13 Order name: Urine Dipstick-Ancillary (obtain specimen); Complete Time: 18:45 cp 05/21 17:37 Order name: Labs - recollect needed; Complete Time: 17:46 dh3 05/21 18:24 Order name: Misc. Order: neutropenic precautions; Complete Time: 18:43 cp 05/21 18:41 Order name: Labs - recollect needed; Complete Time: 18:54 dh3 EC/05 16:37 Rate is 88 beats/min. Rhythm is regular. [place] interval is normal. QRS interval is normal. cp QT interval is normal. T waves are Inverted in lead aVL. Interpreted by me. Reviewed by me. Administered Medications: 16:30 Drug: NS 0.9% 1000 ml Route: IV; Rate: 1 bolus; Site: PICC; ca1 17:30 Follow up: Response: No adverse reaction; IV Status: Completed infusion ca1 17:05 Drug: Zosyn 3.375 grams Route: IVPB; Infused Over: 60 mins; Site: PICC; ca1 19:24 Follow up: Response: No adverse reaction; IV Status: Completed infusion ca1 18:43 Drug: fentaNYL (PF) 25 mcg Route: IVP; Site: PICC; ca1 19:25 Follow up: Response: No adverse reaction; Pain is unchanged, physician notified ca1 19:24 Drug: vancoMYCIN 1 grams Route: IVPB; Infused Over: 2 hrs; Site: PICC; ca1 05/22 00:29 Follow up: Response: No adverse reaction; IV Status: Completed infusion ca1 05/21 19:25 Drug: fentaNYL (PF) 25 mcg Route: IVP; Site: PICC; ca1 20:24 Follow up: Response: No adverse reaction; Pain is decreased ca1 19:32 Not Given (Patient Refused): Tylenol 1000 mg PO once ca1 20:01 Drug: Tylenol 1000 mg Route: PO; ca1 21:43 Follow up: Temp 98.5 Axillary; Response: No adverse reaction; Temperature is decreased ca1 Point of Care Testing: Blood Glucose: 16:49 Blood Glucose: 103 mg/dL; ca1 Ranges: Critical Glucose Levels:Adult <50 mg/dl or >400 mg/dl <40 mg/dl or >180 mg/dl Disposition: 05/21/19 18:32 Transfer ordered to [facility]. Diagnosis are Neutropenia, Fever, unspecified, Thrombocytopenia, unspecified. - Reason for transfer: Private Physician at Transfer[facility]. - Accepting physician is DR Bell. - Condition is Stable. - Problem is new. - Symptoms have improved. Addendum: 05/26/2019 16:37 Co-signature as Attending Physician, Jay[facility] MD I agree with the assessment and c barrios plan of care. Signatures: Dispatcher [employer] Jayme Lopez MD MD cha Page, Corey PA Malika Carmona cp, HAMMAD CUEVA Julianne Ledesma [facility] Emerson Patel RN RN Coni Rosas RN RN ca1 Corrections: (The following items were deleted from the chart) 05/21 17:26 17:25 Normal except: NA 134. cp cp 20:41 18:32 05/21/2019 18:32 Transfer ordered to Other Acute Care Facility. Diagnosis is cp Neutropenia; Fever, unspecified; Thrombocytopenia, unspecified. Reason for transfer: Private Physician at [facility]. Accepting physician is Doctor. Condition is Stable. Problem is new. Symptoms have improved. cp 05/22 01:12 05/21 20:41 05/21/2019 18:32 Transfer ordered to Other Acute Care Facility. Diagnosis cp is Neutropenia; Fever, unspecified; Thrombocytopenia, unspecified. Reason for transfer: Private Physician at [facility]. Accepting physician is DR Ana Lawrence. Condition is Stable. Problem is new. Symptoms have improved. cp 05/22 02:44 01:12 05/21/2019 18:32 Transfer ordered to [facility]. Diagnosis is rv Neutropenia; Fever, unspecified; Thrombocytopenia, unspecified. Reason for transfer: Private Physician at [facility]. Accepting physician is DR Bell. Condition is Stable. Problem is new. Symptoms have improved. cp
[2019-05-21] MEDS ORDERED: FENTANYL CITR 100 MCG/2 ML ONE (18:40)
[2019-05-21 18:57] LABS: Urine Bacteria <20 /HPF (NONE SEEN)
[2019-05-21 18:58] LABS: Urine Culture Reflex Order NOT NEEDED
[2019-05-21] MEDS ORDERED: ALBUTEROL 2.5 MG/3 ML NEB SOL ONE (19:19)
[2019-05-21] MEDS ORDERED: predniSONE 20 MG TAB ONE (19:19)
[2019-05-21 19:23] LABS: Urine Blood 2+ (NEG); Urine Glucose NEGATIVE (NEG); Urine Protein NEGATIVE (NEG); Urine Specific Gravity 1.015 (1.005-1.030)
[2019-05-21] MEDS ORDERED: ACETAMINOPHEN 500 MG TAB ONE (19:43)
[2019-05-21 20:33] LABS: Platelet Estimate DECR; Smudge Cells PRESENT
[2019-05-21 20:34] LABS: Blood Morphology Comment NOT SEEN (NOT SEEN)
[2019-05-21] MEDS ORDERED: NA CHLORIDE 0.9% 250 ML ONE (20:47)
--- NOTE | 2019-05-22 07:20 | EKG ---
Test Date: 2019-05-21 Test Time: 16:34:06 Editor At Large: [facility] MEASUREMENT RESULTS: Intervals: Rate: 88 OH: 134 QRSD: 96 QT: 332 QTc: 401 [place]: P: 61 OH: 134 QRS: 58 T: 70 INTERPRETIVE STATEMENTS: Normal sinus rhythm Incomplete right bundle branch block Borderline ECG Compared to ECG 04/26/2019 23:50:57 No significant changes Electronically Signed On 05-22-19 07:18:34 CDT by Reji Mccall
== END 2019-05-22 02:44 | disposition short-term general hospital (02) ==
LOC: ER 15:44
DX: D70.9 Neutropenia, unspecified (principal); D69.6 Thrombocytopenia, unspecified; R50.9 Fever, unspecified; K59.00 Constipation, unspecified; J45.909 Unspecified asthma, uncomplicated; C92.00 Acute myeloblastic leukemia, not having achieved remission
CPT/HCPCS: 36415; 36430; 71045; 74177; 80048; 80076; 81003; 81015; 82962; 83605; 83690; 84145; 84484; 85025; 85610; 85730; 86850; 86900; 86901; 87040; 87086; 87088; 93005; 96361; 96365; 96366; 96367; 96375; 99285; J2543; J3010; J7030; J7512; P9035; Q9967